=== PATIENT | female | born 2000 | race Caucasian/White ===

== ENCOUNTER 2020-02-28 12:55 | Emergency (ER) | payer OTHER, SELFPAY ==
[2020-02-28 13:06] VITALS: BP 129/82; PULSE 85; RESP 20; TEMP 36.6; O2SAT 100
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
== END 2020-02-28 13:53 | disposition home or self-care (01) ==
PROVIDERS: Emergency Provider Registered Nurse
DX: S05.02XA Injury of conjunctiva and corneal abrasion without foreign body, left eye, initial encounter (principal); W22.8XXA Striking against or struck by other objects, initial encounter
CPT/HCPCS: 99213; G0463

== ENCOUNTER 2021-07-04 12:46 | Emergency (ER) | payer BC, SELFPAY ==
[2021-07-04 12:54] VITALS: BP 135/70; PULSE 99; RESP 16; TEMP 36.4; O2SAT 100
[2021-07-04 12:59] VITALS: BP 135/70; PULSE 99; RESP 16; TEMP 36.4; O2SAT 100
--- NOTE | 2021-07-04 13:12 | ED.URI ---
HPI - URI/Sore Throat General Chief Complaint: Upper Respiratory Infection Stated Complaint: Sinus,Chest Congestion Source: patient and RN notes reviewed Mode of arrival: ambulatory Limitations: no limitations History of Present Illness HPI Narrative: Patient has a 3-day history of chest congestion, cough, patient states she was sick 3 to 4 weeks ago with cold/allergies. Patient states at that time she took Zyrtec-D. Patient has not been taking any of her allergy medicines the last 3 weeks. MD elicited complaint: nasal congestion Related Data Allergies Allergy/AdvReac Type Severity Reaction Status Date / Time No Known Allergies Allergy Verified 02/28/20 13:09 Review of Systems Review of Systems: CONSTITUTIONAL: Denies body aches, fever, chills, or sweats. EYES: Denies visual changes, redness, or discharge. ENT: + rhinorrhea,+ congestion, sore throat, or otalgia. CARDIOVASCULAR: Denies chest pain, palpitations, or edema. RESPIRATORY: Denies dyspnea+ cough. GASTROINTESTINAL: Denies abdominal pain, nausea, vomiting, or diarrhea. GENITOURINARY: Denies dysuria or hematuria. SKIN: Denies rash, itching, or wounds. MUSCULOSKELETAL: Denies back pain, joint pain, or myalgia. NEUROLOGIC: Denies headache, numbness, tingling, or weakness. PSYCH: Denies depression or anxiety. All systems reviewed & are unremarkable except as noted in HPI and below [facility] Social History Social History Smoking status: Never smoker Gender identity (if verbalized by the patient): Female Exam Narrative: GENERAL: Well-appearing, well-nourished, and in no acute distress. HEAD: Normocephalic, atraumatic. EYES: EOMI. No redness or drainage. Conjunctivae normal. ENT: Mucous membranes pink and moist. Nasal membranes erythematous with clear drainage. Bilateral tympanic membranes are dull with moderate bulging no erythema. Posterior pharynx is erythemic with mild edema no exudate. . Uvula midline. Patient has a moderate amount of clear postnasal drainage. NECK: Normal AROM. Supple. No lymphadenopathy. CHEST: No respiratory distress. Clear to auscultation. MUSCULOSKELETAL: No bony tenderness. EXTREMITIES: Normal range of motion. No edema. SKIN: Warm, dry, no rash. Capillary refill normal. Normal skin turgor. NEURO: No focal deficits. Alert and oriented x3. Gait steady. PSYCH: Normal affect. No signs of depression or anxiety. Course Vital Signs Vital signs: Vital Signs Temperature 36.4 C 07/04/21 12:54 Pulse Rate 99 07/04/21 12:54 Respiratory Rate 16 07/04/21 12:54 Blood Pressure 135/70 07/04/21 12:54 Pulse Oximetry 100 07/04/21 12:54 Temperature 36.4 C 07/04/21 12:59 Pulse Rate 99 07/04/21 12:59 Respiratory Rate 16 07/04/21 12:59 Blood Pressure 135/70 07/04/21 12:59 Pulse Oximetry 100 07/04/21 12:59 Reviewed. Pt has been instructed to follow up with her PCP regarding her elevated blood pressure today. MDM - URI/Sore Throat MDM Narrative Medical decision making narrative: Patient will be diagnosed with upper respiratory infection. Her symptoms have only been for 3 days. Patient also was then educated to take her allergy medicine daily and not to stop abruptly. Patient will follow up with her primary care physician for continued symptoms in 7 to 10 days. Differential Diagnosis Differential diagnosis: Likely upper respiratory infection, otitis media, viral infection and bronchitis Critical Care Time Critical Care Time Critical Care Time: No Discharge Plan Discharge Clinical Impression: Upper respiratory infection Patient Disposition: Home, Self-Care Condition: Stable Instructions: Antibiotic Form, Upper Respiratory Infection (ED) Additional Instructions: Take Zytec D daily for next 7-10 days Saline nasal spray 3-4 times daily. Follow up with primary care physician in 3-5 days for continued symptoms. Your blood pressure was el
== END 2021-07-04 13:30 | disposition home or self-care (01) ==
PROVIDERS: Emergency Provider Nurse Practitioner Family
DX: J06.9 Acute upper respiratory infection, unspecified (principal)
CPT/HCPCS: 99213; G0463

== ENCOUNTER 2023-03-10 11:00 | Emergency (ER) | payer BC, SELFPAY ==
--- NOTE | 2023-03-10 11:09 | ED.URI ---
HPI - URI/Sore Throat General Chief Complaint: Upper Respiratory Infection Stated Complaint: chest/sinus damián,cough Source: patient and RN notes reviewed History of Present Illness HPI Narrative: 22-year-old female presents to urgent care with complaints of congestion in her chest and a cough. Patient states for the last month she has been having intermittent allergy like symptoms with congestion runny nose and states that it has now traveled to her chest. Patient states her cough worse at nighttime. Patient states her congestion and runny nose are typically fine during the day but worse in the morning and nighttime. Patient has taken an allergy pill [id number] without relief. Denies any fevers chills sore ear pain chest pain, or vomiting. Patient reports some shortness of breath because she starts to have coughing fits with activity. Related Data Allergies Allergy/AdvReac Type Severity Reaction Status Date / Time No Known Allergies Allergy Verified 03/10/23 11:11 Review of Systems Review of Systems: Pertinent positives and pertinent negatives per HPI. PMFSH Social History Social History Smoking status: Never smoker Living arrangements: with family Gender identity (if verbalized by the patient): Female Comments At the time of my signature, I reviewed and agree with the nursing past medical, surgical, social, and family history. There is no relevant family history pertinent to the patient complaint. Exam Narrative: GENERAL: This is a well-nourished, well-developed patient, in no apparent distress. HEAD: normocephalic, atraumatic. EYES: Sclera clear/white. Vision is grossly intact. EARS: External ears normal, auditory canals clear and without drainage, TMs normal without perforation. Hearing grossly intact. NOSE: External nose normal with no obvious nasal discharge, nares without redness, no rhinorrhea. THROAT: Mucous membranes moist, posterior pharynx clear. NECK: Neck supple, non-tender without lymphadenopathy, masses or thyromegaly. CARDIOVASCULAR: Regular rate and rhythm without murmurs, gallops, or rubs. RESPIRATORY: Clear to auscultation. Breath sounds equal bilaterally. No wheezes, rales, or rhonchi. GASTROINTESTINAL: Abdomen soft, non-tender, nondistended. Bowel sounds are active. No hepato-splenomegaly, or palpable masses. No guarding. SKIN: warm, intact with no suspicious lesions or rash, good texture and turgor. NEURO: awake, alert, and oriented to person, place and time. There were no obvious focal neurologic abnormalities. EXTREMITIES: No clubbing, cyanosis, or edema. No joint tenderness, effusion, or edema noted. BACK: Nontender without deformity or crepitus. No flank tenderness. Course Course Level of Care: Express Care Visit Vital Signs Vital signs: Vital Signs Temperature 97.1 F L 03/10/23 11:12 Pulse Rate 90 03/10/23 11:12 Respiratory Rate 16 03/10/23 11:12 Blood Pressure 136/74 03/10/23 11:12 Pulse Oximetry 99 03/10/23 11:12 Temperature 97.1 F L 03/10/23 11:12 Pulse Rate 90 03/10/23 11:12 Respiratory Rate 16 03/10/23 11:12 Blood Pressure 136/74 03/10/23 11:12 Pulse Oximetry 99 03/10/23 11:12 reviewed MDM - URI/Sore Throat MDM Narrative Medical decision making narrative: Take steroids as directed. May use the inhaler every 4-6 hours as needed for coughing. Increase fluids at home. Avoid any and all smoke. May use a humidifier in the bedroom. Increase your Vitamin C. Follow-up with personal physician in 2-5 days. Differential Diagnosis Differential diagnosis: Likely upper respiratory infection, sinusitis and bronchitis Critical Care Time Critical Care Time Critical Care Time: No Discharge Plan Discharge Clinical Impression: Bronchitis Patient Disposition: Home, Self-Care Condition: Stable Instructions: Acute Bronchitis (ED) Additional Instructions:
[2023-03-10 11:12] VITALS: BP 136/74; PULSE 90; RESP 16; TEMP 36.2; O2SAT 99
== END 2023-03-10 11:22 | disposition home or self-care (01) ==
PROVIDERS: Emergency Provider Nurse Practitioner Family
DX: J40 Bronchitis, not specified as acute or chronic (principal)
CPT/HCPCS: 99213; G0463

== ENCOUNTER 2023-03-17 13:30 | Emergency (ER) | payer BC, SELFPAY | END 2023-03-17 14:43 | disposition home or self-care (01) | PROVIDERS: Emergency Provider Nurse Practitioner Family | DX: R05.9 Cough, unspecified (principal) | CPT/HCPCS: 99213; G0463 ==

== ENCOUNTER → 2023-04-23 15:49 | Outpatient (CLI) | payer BC, SELFPAY ==
--- NOTE | ~2023-04-23 | XR_ITS ---
EXAMINATION: XR chest 2V 04/23/2023 16:08 INDICATION: Acute respiratory infection PROCEDURE: 2 view chest COMPARISON: No prior studies for comparison. FINDINGS: The lungs are clear. The cardiomediastinal silhouette is within normal limits. There are no pleural effusions. There is no pneumothorax suspected. IMPRESSION: 1: NO ACUTE CARDIOPULMONARY DISEASE. Reviewed, dictated and finalized at location L.
== END ==
PROVIDERS: PCP Emergency Medicine; Visit Provider Emergency Medicine
DX: J06.9 Acute upper respiratory infection, unspecified (principal)
CPT/HCPCS: 71046

== ENCOUNTER 2025-06-16 08:58 | Emergency (ER) | payer BC, SELFPAY ==
--- NOTE | 2025-06-16 09:04 | ED.GENADULT ---
HPI - General Adult General Chief complaint: Upper Respiratory Infection Stated complaint: SORE THROAT Source: patient Mode of arrival: ambulatory Limitations: no limitations History of Present Illness HPI narrative: patient is a 20-year-old female presenting complaint of sore throat. She reports noticing a white spots to her right tonsil yesterday afternoon. No known exposure to COVID, flu, strep, pneumonia. No treatment initiated prior to arrival. No additional complaints. Related Data Home Medications ?Medication ?Instructions ?Recorded ?Confirmed ?Last Taken ?Type cetirizine 10 mg disintegrating 10 mg PO DAILY 06/01/24 06/16/25 Unknown History tablet Allergies Allergy/AdvReac Type Severity Reaction Status Date / Time No Known Allergies Allergy Verified 06/16/25 09:15 Review of Systems Review of Systems: CONSTITUTIONAL: Denies body aches, fever, chills, or sweats. EYES: Denies visual changes, redness, or discharge. ENT: Reports white spot on right tonsil, Sore throat,Denies rhinorrhea, congestion or otalgia. CARDIOVASCULAR: Denies chest pain, palpitations, or edema. RESPIRATORY: Denies cough or dyspnea. GASTROINTESTINAL: Denies abdominal pain, nausea, vomiting, or diarrhea. GENITOURINARY: Denies dysuria or hematuria. SKIN: Denies rash, itching, or wounds. MUSCULOSKELETAL: Denies back pain, joint pain, or myalgia. NEUROLOGIC: Denies headache, numbness, tingling, or weakness. PSYCH: Denies depression or anxiety. All systems reviewed & are unremarkable except as noted in HPI and below [facility] Social History Social History Lack of Transportation: No Lack of Food: Never True Current Housing: I Have Housing Concerned About Future Housing: No Difficulty Paying Gas/Electric Bills: No Difficulty Paying for Meds: No Currently Unemployed: No Education: Associate Degree Difficulty w/ Childcare or Family Care: No Living arrangements: with family Gender identity (if verbalized by the patient): Female Exam Narrative: GENERAL: Well-appearing, morbidly obese, and in no acute distress. HEAD: Normocephalic, atraumatic. EYES: EOMI. No redness or drainage. Conjunctivae normal. ENT: Mucous membranes pink and moist. Nares clear. No rhinorrhea. TMs normal bilaterally. Tonsils normal. Uvula midline. approx 4mm oval small ulceration noted to the R. tonsillar pilar. NECK: Normal AROM. Supple. No lymphadenopathy. CHEST: No respiratory distress. Clear to auscultation. HEART: Regular rate and rhythm. No murmur appreciated. Normal peripheral pulses. EXTREMITIES: Normal range of motion. SKIN: Warm, dry, no rash. Capillary refill normal. Normal skin turgor. NEURO: No focal deficits. Alert and oriented x3. Gait steady. PSYCH: Normal affect. No signs of depression or anxiety. Course Course Level of Care: Express Care Visit Vital Signs Vital signs: Vital Signs Temperature 97 F L 06/16/25 09:15 Pulse Rate 95 06/16/25 09:15 Respiratory Rate 16 06/16/25 09:15 Blood Pressure 135/78 06/16/25 09:15 Pulse Oximetry 100 06/16/25 09:15 Temperature 97 F L 06/16/25 09:15 Pulse Rate 95 06/16/25 09:15 Respiratory Rate 16 06/16/25 09:15 Blood Pressure 135/78 06/16/25 09:15 Pulse Oximetry 100 06/16/25 09:15 Medical Decision Making MDM Narrative Medical decision making narrative: No throat culture to be sent as her sx are 2/2 an oral ulceration that does not involve the tonsils. Discussed elevated blood pressure readings with patient and advised daily BP monitoring and f/u with PCP if persisting. Vital Signs Vital Signs: Vital Signs Temperature 97 F L 06/16/25 09:15 Pulse Rate 95 06/16/25 09:15 Respiratory Rate 16 06/16/25 09:15 Blood Pressure 135/78 06/16/25 09:15 Pulse Oximetry 100 06/16/25 09:15 Temperature 97 F L 06/16/25 09:15 Pulse Rate 95 06/16/25 09:15 Respiratory Rate 16 06/16/25 09:15 Blood Pressure 135/78 06/16/25 09:15 Pulse Oximetry 100 06/16/25 09:15 Lab Data Lab results reviewed: Yes I reviewed the patient's lab results. Labs: Lab Results 06/16/25 Range/Units 09:21 POC Grp A Strep Screen Negative (Negative) Discharge Plan Discharge Clinical Impression: Oral ulcer, Elevated blood pressure reading in office without diagnosis of hypertension Pharyngitis Qualifiers: Pharyngitis/tonsillitis etiology: unspecified etiology Qualified Code(s): J02.9 - Acute pharyngitis, unspecified Patient Disposition: Home Condition: Stable Instructions: Antibiotic Form, Pharyngitis (ED) Additional Instructions: Go straight to ER should your symptoms become worse or should any new symptoms develop Patient Language: Palauan Prescriptions: No Action albuterol sulfate 90 mcg/actuation HFA aerosol inhaler 2 puff inhalation QID PRN (Reason: shortness of breath or wheezing) Qty: 8.5 0RF cetirizine 10 mg tablet,disintegrating 10 mg PO DAILY methylprednisolone [Methylpred DP] 4 mg tablets,dose pack See Rx Instructions PO PER PKG DIR Qty: 21 0RF Rx Instructions: PO PER PKG DIR Follow-up/Referrals: Rios,Jamie Restrepo MD [Primary Care Provider, [facility]] - 06/17/25 Time of Disposition: 09:19
[2025-06-16 09:15] VITALS: BP 135/78; PULSE 95; RESP 16; TEMP 36.1; O2SAT 100
[2025-06-16 09:23] LABS: EDSTREPNEGPOS1 Negative (Negative)
== END 2025-06-16 09:25 | disposition home or self-care (01) ==
PROVIDERS: Emergency Provider Registered Nurse; PCP Emergency Medicine
DX: K12.1 Other forms of stomatitis (principal); R03.0 Elevated blood-pressure reading, without diagnosis of hypertension; J02.9 Acute pharyngitis, unspecified
CPT/HCPCS: 87880; 99212; G0463